=== PATIENT | female | born 1960 | race Caucasian/White ===

== ENCOUNTER 2022-11-03 11:22 | Outpatient (CLI) | payer BC, SELFPAY ==
--- NOTE | 2022-11-03 12:58 | W.ANESCHARGE ---
Anesthesia Charges Start Date/Time Anesthesia Start Date: 11/03/22 Anesthesia Start Time: 12:20 Stop Date/Time Anesthesia Stop Date: 11/03/22 Anesthesia Stop Time: 12:45 Summary Emergency: No
== END 2022-11-03 11:23 | disposition home or self-care (01) ==
LOC: OP CLINIC 11:23
PROVIDERS: PCP Internal Medicine; Visit Provider Internal Medicine
DX: Z12.11 Encounter for screening for malignant neoplasm of colon (principal); Z80.0 Family history of malignant neoplasm of digestive organs
CPT/HCPCS: 00812; 45378; J2704

== ENCOUNTER 2022-11-30 09:01 | Outpatient (CLI) | payer BC, SELFPAY ==
--- NOTE | 2022-11-30 09:15 | CRLHL7_ITS ---
For Patients: As a result of the Century Cures Act, medical imaging exams and procedure reports are released immediately into your electronic medical record. You may view this report before your referring provider. If you have questions, please contact your health care provider. BILATERAL BREAST MRI WITHOUT AND WITH GADOLINIUM, 11/30/2022 CLINICAL HISTORY: At increased lesser breast cancer due to family history of breast cancer in her mother diagnosed at age 44 and again at age 62. No current breast related concerns. INDICATION FOR BREAST MRI: High-risk screening breast MRI. COMPARISON STUDIES: Breast MRI 10/06/2021 and mammograms 05/04/2022, 04/29/2020 and 12/11/2018. CONTRAST: 20 mL dotarem. TECHNIQUE: The patient was positioned prone using a breast coil. Multiple imaging sequences were obtained using 1-1.5 mm thick slices with no gap. The image sequences include T2-weighted STIR in the axial plane, T1-weighted nonfat-saturated gradient echo in the axial plane, pre- and post-contrast T1-weighted FLASH 3D with fat suppression in the axial plane, and T1-weighted FLASH high resolution 3D with fat suppression in the sagittal plane. Image post-processing was performed on a [employer] workstation. Complex 3D rendering including maximum intensity projections (MIPS) and volumetric renderings were obtained to optimize visualization of the extent of pathology and relationship to the nipple, skin, and chest wall. This aids in determining feasibility of breast conservation surgery. Subtraction, multiplanar reconstruction, mean curve determination, and angiogenesis mapping were also performed. The study was technically adequate. FINDINGS: Amount of Fibroglandular Tissue: Scattered fibroglandular tissue. Breast Background Enhancement: Mild. RIGHT Breast: There is no suspicious mass or enhancement within the breast. LEFT Breast: There is no suspicious mass or enhancement within the breast. Lymph Nodes: No abnormal morphology lymph nodes. IMPRESSIONS AND RECOMMENDATIONS: 1. No MRI evidence of malignancy in either breast. 2. Annual screening mammography is recommended. If clinically indicated, continued screening breast MRI may also be performed, staggered at six-month intervals with screening mammography. BI-RADS Category 1: Negative Dictated by Yudelka Farley MD @ 12/04/2022 4:48:01 PM jj/Dictated by: Yudelka Farley MD @ 12/04/2022 4:53:00 PM (Electronically Signed)
== END 2022-11-30 09:02 | disposition home or self-care (01) ==
PROVIDERS: PCP Physician Assistant Medical; Visit Provider Physician Assistant Medical
DX: Z12.31 Encounter for screening mammogram for malignant neoplasm of breast (principal); Z84.89 Family history of other specified conditions
CPT/HCPCS: 77049; A9575

== ENCOUNTER 2023-02-19 08:02 | Outpatient (CLI) | payer BC, SELFPAY ==
--- NOTE | 2023-02-19 08:15 | CRLHL7_ITS ---
For Patients: As a result of the Century Cures Act, medical imaging exams and procedure reports are released immediately into your electronic medical record. You may view this report before your referring provider. If you have questions, please contact your health care provider. INDICATION: Sudden right-sided hearing loss. TECHNIQUE: Sagittal T1, axial FLAIR, T2, diffusion-weighted and gadolinium enhanced T1 weighted images of the entire brain. Thin section axial and coronal T1 weighted images with and without gadolinium contrast and fat saturation and high-resolution T2 weighted images are obtained centering on the internal auditory canals. FINDINGS: There is no evidence of acoustic neuroma/vestibular schwannoma. No pathologic enhancement within the internal auditory canals. No evidence of acute ischemic infarction. No areas of diffusion restriction. No lesion is seen within the central auditory/vestibular pathways. There is a solitary, small, chronic lacunar infarction within the anterior/frontal lobe han radiata. No enhancing intra-axial or extra-axial lesions. The orbits, sella turcica paranasal sinuses and skullbase are unremarkable. There is a partial left mastoid effusion. IMPRESSION: 1. No evidence of acoustic neuroma/vestibular schwannoma. No focal lesion with attention to the central auditory this tubular pathways. 2. Tiny chronic lacunar infarct. Otherwise negative MRI brain. 3. Left-sided partial mastoid effusion. Dictated by Soto Brock MD @ 02/19/2023 10:44:09 AM (Electronically Signed)
== END 2023-02-19 08:03 | disposition home or self-care (01) ==
PROVIDERS: Visit Provider Otolaryngology
DX: H91.21 Sudden idiopathic hearing loss, right ear (principal); I63.81 Other cerebral infarction due to occlusion or stenosis of small artery
CPT/HCPCS: 70553; A9575

== ENCOUNTER 2023-05-25 08:31 | Outpatient (CLI) | payer BC, SELFPAY ==
--- NOTE | 2023-05-25 08:45 | CRLHL7_ITS ---
For Patients: As a result of the Century Cures Act, medical imaging exams and procedure reports are released immediately into your electronic medical record. You may view this report before your referring provider. If you have questions, please contact your health care provider. BILATERAL SCREENING MAMMOGRAM WITH COMPUTER-AIDED DETECTION AND TOMOSYNTHESIS TECHNIQUE: CC and MLO views were obtained. These mammographic images have been obtained using full-field digital technique. These mammographic images were interpreted with the benefit of computer-aided detection. Breast Tomosynthesis was used in this interpretation. COMPARISON FILM: 05/04/22, 04/29/20, 12/11/18. FINDINGS: The breasts are heterogeneously dense, which may obscure small masses IMPRESSION: There is no radiographic evidence for malignancy. ASSESSMENT: BI-RADS Category 2: Benign RECOMMENDATION: Routine screening mammogram in 1 year. A lay language report of this examination will be provided to the patient. Sidney Becerra M.D. Diagnostic Radiologist [email or web address] VIVIANA/Dictated by: Sidney Becerra MD @ 05/25/2023 11:35:00 AM (Electronically Signed)
== END 2023-05-25 08:32 | disposition home or self-care (01) ==
LOC: MAMMO 08:32
PROVIDERS: Visit Provider Physician Assistant Medical
DX: Z12.31 Encounter for screening mammogram for malignant neoplasm of breast (principal); R92.2 Inconclusive mammogram
CPT/HCPCS: 77063; 77067

== ENCOUNTER 2024-03-12 13:36 | Outpatient (CLI) | payer OTHER, SELFPAY ==
--- NOTE | 2024-03-12 13:45 | MR_ITS ---
Patient: DARIANA HERNANDEZ Facility:?[facility] Patient ID:?[id number] Site Patient ID:?[id number]. Site :?[id number] Study:?MRI-Breast W/ and W/O Cont 20 CC DOATERM-03/12/2024 3:45:08 PM Ordering Physician:NETTIE PALMER Final Report: BILATERAL BREAST MRI WITHOUT AND WITH GADOLINIUM CLINICAL HISTORY: 63-year-old female with elevated risk of breast cancer due to strong family history. INDICATION FOR BREAST MRI: Screening breast MRI in this high-risk woman. COMPARISON STUDIES: Mammogram 05/25/2023 and breast MRI 11/30/2022. CONTRAST: 20 cc of Dotarem. TECHNIQUE: The patient was positioned prone using a breast coil. Multiple imaging sequences were obtained using 1-1.5 mm thick slices with no gap. The image sequences include T2-weighted STIR in the axial plane, T1-weighted nonfat-saturated gradient echo in the axial plane, pre- and post-contrast T1-weighted FLASH 3D with fat suppression in the axial plane, and T1-weighted FLASH high resolution 3D with fat suppression in the sagittal plane. Image post-processing was performed on a [employer] workstation. Complex 3D rendering including maximum intensity projections (MIPS) and volumetric renderings were obtained to optimize visualization of the extent of pathology and relationship to the nipple, skin, and chest wall. This aids in determining feasibility of breast conservation surgery. Subtraction, multiplanar reconstruction, mean curve determination, and angiogenesis mapping were also performed. The study was technically adequate. FINDINGS: Amount of Fibroglandular Tissue: Scattered fibroglandular tissue. Breast Background Enhancement: Mild. RIGHT Breast: No suspicious areas of enhancement. LEFT Breast: No suspicious areas of enhancement. Lymph Nodes: No adenopathy. IMPRESSIONS AND RECOMMENDATIONS: Negative, there is no MRI evidence of malignancy. Continue annual screening mammography and as clinically indicated screening breast MRI. The mammogram and MRI should be offset by six-month intervals of time. BI-RADS Category 1: Negative Dictated by Fadumo Martinez MD @ 03/13/2024 1:00:17 PM jj/Dictated by: Fadumo Martinez MD @ 03/13/2024 1:00:00 PM Signed by:?Fadumo Martinez MD @03/14/2024 10:18:52 AM (Electronic Signature)
== END 2024-03-12 13:37 | disposition home or self-care (01) ==
PROVIDERS: PCP Physician Assistant Medical; Visit Provider Physician Assistant Medical
DX: Z12.39 Encounter for other screening for malignant neoplasm of breast (principal); Z80.3 Family history of malignant neoplasm of breast; Z91.89 Other specified personal risk factors, not elsewhere classified
CPT/HCPCS: 77049; A9575

== ENCOUNTER 2024-06-05 10:03 | Outpatient (CLI) | payer OTHER, SELFPAY ==
--- NOTE | 2024-06-05 10:15 | CRLHL7_ITS ---
For Patients: As a result of the Cures Act, medical imaging exams and procedure reports are released immediately into your electronic medical record. You may view this report before your referring provider. If you have questions, please contact your health care provider. BILATERAL SCREENING MAMMOGRAM WITH COMPUTER-AIDED DETECTION AND TOMOSYNTHESIS TECHNIQUE: CC and MLO views were obtained. These mammographic images have been obtained using full-field digital technique. These mammographic images were interpreted with the benefit of computer-aided detection. Breast Tomosynthesis was used in this interpretation. COMPARISON FILM: 05/25/23, 05/04/22, 04/29/20. FINDINGS: There are scattered areas of fibroglandular density IMPRESSION: There is no radiographic evidence for malignancy. ASSESSMENT: BI-RADS Category 2: Benign RECOMMENDATION: Routine screening mammogram in 1 year. A lay language report of this examination will be provided to the patient. Sidney Becerra M.D. Diagnostic Radiologist [email or web address] CECI/claire Transcribed: 2:51 p.mAshely rangel/Dictated by: Sidney Becerra MD @ 06/05/2024 12:36:00 PM (Electronically Signed)
== END 2024-06-05 10:04 | disposition home or self-care (01) ==
LOC: MAMMO 10:06
PROVIDERS: PCP Physician Assistant Medical; Visit Provider Physician Assistant Medical
DX: Z12.31 Encounter for screening mammogram for malignant neoplasm of breast (principal)
CPT/HCPCS: 77063; 77067

== ENCOUNTER 2024-12-19 13:51 | Outpatient (CLI) | payer BC, SELFPAY ==
--- NOTE | 2024-12-19 14:00 | CRLHL7_ITS ---
For Patients: As a result of the Century Cures Act, medical imaging exams and procedure reports are released immediately into your electronic medical record. You may view this report before your referring provider. If you have questions, please contact your health care provider. BILATERAL BREAST MRI WITHOUT AND WITH GADOLINIUM CLINICAL HISTORY AND INDICATION: Increased risk of breast cancer due to strong family history. COMPARISON STUDIES: BILATERAL mammogram 05/04/2022, breast MRI 03/12/2024 CONTRAST: 20 mL Dotarem. TECHNIQUE: The patient was positioned prone using a breast coil. Multiple imaging sequences were obtained using 1-1.5 mm thick slices with no gap. The image sequences include T2-weighted STIR in the axial plane, T1-weighted nonfat-saturated gradient echo in the axial plane, pre- and post-contrast T1-weighted FLASH 3D with fat suppression in the axial plane, and T1-weighted FLASH high resolution 3D with fat suppression in the sagittal plane. Image post-processing was performed on a [employer] workstation. Complex 3D rendering including maximum intensity projections (MIPS) and volumetric renderings were obtained to optimize visualization of the extent of pathology and relationship to the nipple, skin, and chest wall. This aids in determining feasibility of breast conservation surgery. Subtraction, multiplanar reconstruction, mean curve determination, and angiogenesis mapping were also performed. The study was technically adequate. FINDINGS: Amount of Fibroglandular Tissue: Scattered fibroglandular. Breast Background Enhancement: Mild. Both breasts negative for suspicious mass or non-mass enhancement. Lymph Nodes: No enlarged or morphologically lymph nodes. IMPRESSIONS AND RECOMMENDATIONS: No sign of malignancy. For complete reading the current mammogram is needed for comparison. BI-RADS: 0 incomplete need mammogram for comparison Dictated by Thania Moise MD @ 12/22/2024 4:17:06 PM claire/Dictated by: Thania Moise MD @ 12/22/2024 4:20:00 PM (Electronically Signed)
== END 2024-12-19 13:52 | disposition home or self-care (01) ==
LOC: MRI 13:52
PROVIDERS: PCP Physician Assistant Medical; Visit Provider Physician Assistant Medical
DX: Z12.39 Encounter for other screening for malignant neoplasm of breast (principal); Z80.3 Family history of malignant neoplasm of breast
CPT/HCPCS: 77049; A9575

== ENCOUNTER 2025-10-08 09:23 | Outpatient (CLI) | payer BC, SELFPAY ==
--- NOTE | 2025-10-08 09:30 | CRLHL7_ITS ---
For Patients: As a result of the Century Cures Act, medical imaging exams and procedure reports are released immediately into your electronic medical record. You may view this report before your referring provider. If you have questions, please contact your health care provider. INDICATION: Low back pain. TECHNIQUE: Multisequence multiplanar MRI of the lumbar spine without the use of intravenous contrast. COMPARISON: None available. FINDINGS: Grade 1 3 mm anterolisthesis of L3-L4. Vertebral body heights are maintained. No T1 hypointense infiltrative lesion is identified. The conus medullaris terminates normally at the L1-L2 level. There is multilevel disc height loss with associated Modic type 2 degenerative endplate signal. The prevertebral soft tissues are unremarkable. T12-L1: No significant spinal canal or neural foraminal stenosis. L1-L2: Shallow symmetric disc bulge. Mild facet joint arthrosis. No significant spinal canal stenosis or neural foraminal narrowing. L2-L3: Symmetric disc bulge. Mild facet joint arthrosis. No significant spinal canal or neural foraminal stenosis. L3-L4: Disc bulge/uncovering. Moderate facet joint arthrosis. Mild-moderate spinal canal stenosis. No significant neural foraminal narrowing. L4-L5: Symmetric disc bulge. Moderate facet joint arthrosis. No significant spinal canal stenosis. Mild right and no significant left neural foraminal narrowing. L5-S1: Shallow symmetric disc bulge. Mild facet joint arthrosis. No significant spinal canal stenosis or left neural foraminal narrowing. Mild right neural foraminal narrowing. IMPRESSION: 1. Multilevel disc height loss and Modic type 2 degenerative endplate signal. 2. At L3-L4, grade 1 anterolisthesis and mild-moderate spinal canal stenosis. 3. At L4-L5 and L5-S1, mild right neural foraminal narrowing. Dictated by Paco Trotter MD @ 10/08/2025 2:04:48 PM (Electronically Signed)
== END 2025-10-08 09:24 | disposition home or self-care (01) ==
LOC: MRI 09:24
PROVIDERS: PCP Physician Assistant; Visit Provider Orthopaedic Surgery Orthopaedic Surgery of the Spine
DX: M51.26 Other intervertebral disc displacement, lumbar region (principal)
CPT/HCPCS: 72148